=== PATIENT | male | born 1990 | race Hispanic/Latino ===

== ENCOUNTER 2019-07-03 18:05 | Emergency (ER) | payer SELFPAY ==
[2019-07-03] MEDS ORDERED: Acetaminophen 500 MG TAB ONE (19:54)
--- NOTE | 2019-07-03 20:31 | CT ---
CT OF THE FACE WITHOUT CONTRAST: Comparison: None. History: Head injury with facial swelling. Technique: Multiple contiguous axial images were obtained in a CT of the face without contrast. Sagit beth and coronal reformats were performed. FINDINGS: There is soft tissue swelling in the forehead and left periaortic soft tissues. The globes and retrob ulbar soft tissues are unremarkable. A large mucous retention cyst is seen in the left maxillary sinus. The other paranasal sinuses are we ll aerated. The mastoid air cells are well aerated. No facial fractures are seen. There is nasal septum deviation to the right. The bilaterally maxillary osteomeatal units are patent. The visualized intracranial structures are unremarkable. IMPRESSION: No evidence of facial fractures. POS: [facility]
== END 2019-07-03 20:48 | disposition home or self-care (01) ==
LOC: ERS 18:05
DX: S00.83XA Contusion of other part of head, initial encounter (principal); W50.0XXA Accidental hit or strike by another person, initial encounter; Y93.66 Activity, soccer
CPT/HCPCS: 70486